=== PATIENT | male | born 1950 | race Hispanic/Latino ===

== ENCOUNTER 2025-01-24 08:22 | Inpatient (IN) | payer MEDICARE ==
[2025-01-22 12:27] LABS: BASOPHILS % 0.4 % (0.0-1.0); EOSINOPHILS % 19.5 % (0.0-6.0); LYMPHOCYTES % 19.3 % (18.0-39.1); MONOCYTES % 5.8 % (4.4-11.3); NEUTROPHILS % 54.8 % (38.7-80.0); RED CELL DISTRIBUTION WIDTH 12.3 % (11.7-14.4)
[2025-01-22 12:46] LABS: EST GLOMERULAR FILTRATION RATE 53.0 ML/MIN (>=60)
[~2025-01-24] VITALS: Ht 167.6 cm; Wt 111.6 kg
[~2025-01-24 08:22] MED LIST: AMLODIPINE BESY10 MG PO; ASPIRIN EC81 MG PO; ATENOLOL50 MG PO; CLOPIDOGREL75 MG PO; ENALAPRIL MALEA20 MG PO; FINASTERIDE5 MG PO; FLOMAX0.4 MG PO; GLIMEPIRIDE2 MG PO; K DUR10 MEQ PO; MAGNESIUM OXID400 MG PO; METFORMIN HCL500 M2 PO; MULTIVITAMIN W1 EACH PO; PRAVASTATIN SOD40 MG PO; SPIRONOLACTONE25 MG PO; TRIAMTERENE-HCTZ1 EA PO; VITAMIN D3250 MCG PO
[2025-01-24] MEDS ORDERED: SEVOFLURANE INHAL SOLN 250 ML PEN BTL ONE (09:45)
[2025-01-24] MEDS ORDERED: FENTANYL CITRATE/PF 100MCG/2 ML INJ ONE (09:45)
[2025-01-24] MEDS ORDERED: PROPOFOL IV EMULSION 10 MG/ML 20 ML VIAL ONE (09:45)
[2025-01-24] MEDS ORDERED: ACETAMINOPHEN 1000 MG/100 ML 100 ML IV ONE (09:45)
[2025-01-24] MEDS ORDERED: LIDOCAINE HCL 2% LOCAL INJ 5 ML SDV VIAL INJ ONE (09:45)
[2025-01-24] MEDS: SODIUM CHLORIDE 0.9% 1000ML 1,000 ML ONE (10:15)
[2025-01-24] MEDS: CEFTRIAXONE 1 GM VIAL ONE ×2 (10:16→10:17)
[2025-01-24] MEDS: GENTAMICIN 80MG/NS 100 ML 200 ML IV ONE (10:17)
[2025-01-24] MEDS ORDERED: ONDANSETRON HCL INJ 2MG/ML 2ML 2 MG/ML VIAL ONE (11:30)
[2025-01-24] MEDS ORDERED: DEXAMETHASONE SOD PHOS INJ 4 MG/ML SDV ONE (11:30)
[2025-01-24] MEDS ORDERED: PHENAZOPYRIDINE HCL 100 MG TAB PO PRN (13:45)
[2025-01-24] MEDS ORDERED: ACETAMINOPHEN/CODEINE 300MG - 30MG TAB PO PRN (13:45)
[2025-01-24] MEDS ORDERED: DIPHENHYDRAMINE HCL 25 MG CAP PO PRN (13:45)
[2025-01-24] MEDS ORDERED: ACETAMINOPHEN 1000 MG/100 ML IV PRN (13:45)
[2025-01-24] MEDS ORDERED: ONDANSETRON HCL INJ 2MG/ML 2ML 2 MG/ML VIAL IV PRN (13:45)
[2025-01-24 14:02] LABS: BASOPHILS % 0.3 % (0.0-1.0); EOSINOPHILS % 7.4 % (0.0-6.0); LYMPHOCYTES % 11.7 % (18.0-39.1); MONOCYTES % 1.7 % (4.4-11.3); NEUTROPHILS % 78.7 % (38.7-80.0); RED CELL DISTRIBUTION WIDTH 12.4 % (11.7-14.4)
[2025-01-24 14:26] LABS: EST GLOMERULAR FILTRATION RATE 59.0 ML/MIN (>=60)
[2025-01-24 15:50] VITALS: BP 139/74; PULSE 61; RESP 20; TEMP 97.7; O2SAT 95
[2025-01-24 15:55] VITALS: PULSE 75; RESP 15; O2SAT 98
[2025-01-24] MEDS: SODIUM CHLORIDE 0.9% 1000ML 1,000 ML IV SCH (16:31)
[2025-01-24] MEDS: SENNA-S TABLET PO SCH (16:31)
[2025-01-24] MEDS: FENTANYL CITRATE/PF 100MCG/2 ML INJ ONE (16:32)
[2025-01-24 20:30] VITALS: PULSE 71; RESP 16; O2SAT 98
[2025-01-24 22:58] VITALS: BP 169/80; PULSE 77; RESP 19; TEMP 97.6; O2SAT 97
[2025-01-25] VITALS (14 sets, daily range): BP systolic 134–169; BP diastolic 63–80; PULSE 56–77; RESP 16–20; TEMP 97.1–98.4; O2SAT 96–100
[2025-01-25 05:15] LABS: BASOPHILS % 0.3 % (0.0-1.0); EOSINOPHILS % 1.6 % (0.0-6.0); LYMPHOCYTES % 12.3 % (18.0-39.1); MONOCYTES % 6.7 % (4.4-11.3); NEUTROPHILS % 78.8 % (38.7-80.0); RED CELL DISTRIBUTION WIDTH 12.1 % (11.7-14.4)
[2025-01-25 05:44] LABS: EST GLOMERULAR FILTRATION RATE 79.0 ML/MIN (>=60)
[2025-01-25] MEDS ORDERED: DEXTROSE 50% SYRINGE 50 ML IV PRN ×2 (11:45→15:15)
[2025-01-25] MEDS ORDERED: BENZONATATE 100 MG CAP PO PRN (11:45)
[2025-01-25] MEDS ORDERED: LIDOCAINE 4% PATCH TP PRN (11:45)
[2025-01-25] MEDS ORDERED: ALBUTEROL/IPRATROPIUM 3 ML NEB NEB PRN (11:45)
[2025-01-25] MEDS ORDERED: DOCUSATE SODIUM 100 MG CAP PO PRN (11:45)
[2025-01-25] MEDS ORDERED: ONDANSETRON HCL INJ 2MG/ML 2ML 2 MG/ML VIAL IV PRN (11:45)
[2025-01-25] MEDS ORDERED: ACETAMINOPHEN 325 MG TAB PO PRN (11:45)
[2025-01-25] MEDS ORDERED: DIPHENHYDRAMINE HCL 25 MG CAP PO PRN (11:45)
[2025-01-25] MEDS ORDERED: SIMETHICONE 80 MG CHEW PO PRN (11:45)
[2025-01-25] MEDS: INSULIN LISPRO 100 UNIT/1 ML 3ML VIAL SQ SCH (16:56)
[2025-01-25] MEDS ORDERED: MELATONIN 5 MG TABLET PO PRN (21:00)
[2025-01-26] VITALS (10 sets, daily range): BP systolic 116–180; BP diastolic 61–85; PULSE 61–72; RESP 16–18; TEMP 97.3–98.2; O2SAT 93–96
[2025-01-26 05:51] LABS: BASOPHILS % 0.4 % (0.0-1.0); EOSINOPHILS % 13.0 % (0.0-6.0); LYMPHOCYTES % 18.1 % (18.0-39.1); MONOCYTES % 6.3 % (4.4-11.3); NEUTROPHILS % 61.8 % (38.7-80.0); RED CELL DISTRIBUTION WIDTH 12.4 % (11.7-14.4)
[2025-01-26 06:29] LABS: EST GLOMERULAR FILTRATION RATE 89.0 ML/MIN (>=60)
[2025-01-26] MEDS: AMLODIPINE BESYLATE 10 MG TAB PO SCH (09:22)
[2025-01-26] MEDS: PRAVASTATIN 20 MG TAB PO SCH (09:22)
[2025-01-26] MEDS: ENALAPRIL MALEATE 10 MG TAB PO SCH (09:22)
[2025-01-26] MEDS: PANTOPRAZOLE SOD 40 MG TABEC PO SCH (09:22)
[2025-01-26] MEDS: POTASSIUM CHLORIDE 20 MEQ TAB CR PO PRN (09:32)
[2025-01-26] MEDS: HYDRALAZINE HCL 20 MG/ML VIAL IV PRN (21:01)
[2025-01-27] VITALS (7 sets, daily range): BP systolic 130–148; BP diastolic 72–80; PULSE 71–91; RESP 18; TEMP 97.6–98.9; O2SAT 95–96
[2025-01-27 07:41] LABS: BASOPHILS % 0.3 % (0.0-1.0); EOSINOPHILS % 11.6 % (0.0-6.0); LYMPHOCYTES % 13.7 % (18.0-39.1); MONOCYTES % 7.1 % (4.4-11.3); NEUTROPHILS % 67.0 % (38.7-80.0); RED CELL DISTRIBUTION WIDTH 12.7 % (11.7-14.4)
[2025-01-27 08:08] LABS: EST GLOMERULAR FILTRATION RATE 89.0 ML/MIN (>=60)
[2025-01-28 05:55] VITALS: PULSE 68
[2025-01-28 06:20] VITALS: PULSE 74; RESP 21; O2SAT 95
[2025-01-28 07:37] VITALS: BP 143/75; PULSE 82; RESP 18; TEMP 99.1; O2SAT 96
[2025-01-28 08:33] VITALS: BP 143/75; PULSE 82; RESP 18; TEMP 99.1; O2SAT 96
[2025-01-28 08:53] LABS: BASOPHILS % 0.3 % (0.0-1.0); EOSINOPHILS % 11.9 % (0.0-6.0); LYMPHOCYTES % 10.4 % (18.0-39.1); MONOCYTES % 6.9 % (4.4-11.3); NEUTROPHILS % 70.2 % (38.7-80.0); RED CELL DISTRIBUTION WIDTH 12.7 % (11.7-14.4)
[2025-01-28 09:17] LABS: EST GLOMERULAR FILTRATION RATE 70.0 ML/MIN (>=60)
== END 2025-01-28 16:19 | disposition home or self-care (01) | DRG 713 ==
LOC: OR 08:22 → PACU V 13:39 → MED/SURG 14:37
PROVIDERS: ADMIT Urology; ATTEND Internal Medicine
PROC: 0T7D8ZZ Dilation of Urethra, Via Natural or Artificial Opening Endoscopic (ICD-10-PCS; 2025-01-24)
PROC: BT141ZZ Fluoroscopy of Kidneys, Ureters and Bladder using Low Osmolar Contrast (ICD-10-PCS; 2025-01-24)
PROC: 0DJD7ZZ Inspection of Lower Intestinal Tract, Via Natural or Artificial Opening (ICD-10-PCS; 2025-01-24)
PROC: 0T9B70Z Drainage of Bladder with Drainage Device, Via Natural or Artificial Opening (ICD-10-PCS; 2025-01-24)
PROC: 0VB08ZZ Excision of Prostate, Via Natural or Artificial Opening Endoscopic (ICD-10-PCS; principal; 2025-01-24 11:22)
DX: N40.1 Benign prostatic hyperplasia with lower urinary tract symptoms (principal); N13.8 Other obstructive and reflux uropathy; E11.22 Type 2 diabetes mellitus with diabetic chronic kidney disease; I12.9 Hypertensive chronic kidney disease with stage 1 through stage 4 chronic kidney disease, or unspecified chronic kidney disease; N35.916 Unspecified urethral stricture, male, overlapping sites; E78.5 Hyperlipidemia, unspecified; R31.29 Other microscopic hematuria; N32.81 Overactive bladder; K80.20 Calculus of gallbladder without cholecystitis without obstruction; N18.9 Chronic kidney disease, unspecified; C61 Malignant neoplasm of prostate; I25.10 Atherosclerotic heart disease of native coronary artery without angina pectoris; E66.9 Obesity, unspecified; Z68.39 Body mass index [BMI] 39.0-39.9, adult; Z79.02 Long term (current) use of antithrombotics/antiplatelets; Z79.84 Long term (current) use of oral hypoglycemic drugs
CPT/HCPCS: 36415; 71046; 74420; 80048; 82948; 83735; 85025; 88304; 88305; 93005; 94799; C1758; J0360; J0696; J1100; J1580; J2003; J2405; J2470; J7030